=== PATIENT | female | born 1950 | race Caucasian/White ===

== ENCOUNTER → 2020-03-27 | Day surgery (SDC) | payer MEDICARE, OTHER ==
[~2020-03-27] MED LIST: AMARYL2 MG PO; ASPIRIN EC81 MG PO; CALCIUM 500 +1 EACH PO; COZAAR 100MG T100 MG PO; FERROUS SULFAT325 MG PO; INVOKANA100 MG PO; KEFLEX250 MG PO; LASIX40 MG PO; LEVAQUIN250 MG PO; LISINOPRIL-HCT1 EAC1 PO; LOPRESSOR50 MG PO; METRONIDAZOLE500 MG PO; MINOXIDIL2.5 MG PO; NORCO 5-325 TA1 EACH PO; NORVASC5 MG PO; PLAVIX75 M1 PO; PRILOSEC20 MG PO; PRINIVIL20 MG PO; PROBIOTIC1 EAC1 PO; SIMVASTATIN40 MG PO; TORSEMIDE100 MG PO; VIBRAMYCIN100 MG PO; ZAROXOLYN2.5 MG PO; ZOCOR40 MG PO; ZOLOFT50 MG PO
[2020-03-27 12:19] LABS: HCT 35.7 % (37.0-47.0); HGB 10.2 g/dl (12.5-16.0); MCH 24.1 pg (25.0-31.0); MCHC 28.6 g/dL (32.0-36.0); MCV 84.2 fL (78.0-100.0); MPV 9.5 fL (6.0-9.5); RBC 4.24 M/uL (4.20-5.40); RDW 15.8 % (11.5-14.0)
== END | disposition home or self-care (01) ==
LOC: FAS 08:40
PROVIDERS: Legal Medicine
DX: M71.122 Other infective bursitis, left elbow (principal); M25.022 Hemarthrosis, left elbow; K21.9 Gastro-esophageal reflux disease without esophagitis; I12.9 Hypertensive chronic kidney disease with stage 1 through stage 4 chronic kidney disease, or unspecified chronic kidney disease; E11.22 Type 2 diabetes mellitus with diabetic chronic kidney disease; N18.4 Chronic kidney disease, stage 4 (severe); J44.9 Chronic obstructive pulmonary disease, unspecified; Z86.73 Personal history of transient ischemic attack (TIA), and cerebral infarction without residual deficits; Z87.891 Personal history of nicotine dependence; Z79.82 Long term (current) use of aspirin; Z79.84 Long term (current) use of oral hypoglycemic drugs; Z79.899 Other long term (current) drug therapy; Z88.2 Allergy status to sulfonamides; Z88.5 Allergy status to narcotic agent; Z79.02 Long term (current) use of antithrombotics/antiplatelets
CPT/HCPCS: 36415; 87070; 87205; 88305; 93005; J0690; J2250; J2405; J2795; J3010; J3260; J7120

== ENCOUNTER 2020-10-22 19:30 | Day surgery (SDCO) | payer MEDICARE, OTHER ==
[~2020-10-22] VITALS: Ht 152.4 cm; Wt 97.7 kg
[2020-10-22 19:57] LABS: BASOPHIL 0.3 % (0-2); HCT 29.8 % (37.0-47.0); HGB 8.7 g/dl (12.5-16.0); MCH 23.5 pg (25.0-31.0); MCHC 29.2 g/dL (32.0-36.0); MCV 80.3 fL (78.0-100.0); MPV 8.9 fL (6.0-9.5); NEUTROPHIL 88.1 % (41-80); PLT 244 K/uL (150-400); RBC 3.71 M/uL (4.20-5.40); RDW 16.2 % (11.5-14.0); WBC 7.29 K/uL (4.0-10.5)
[2020-10-22 20:18] LABS: ALBUMIN 3.8 g/dL (3.4-5.0); BILIRUBIN - TOTAL 0.3 mg/dL (0.2-1.0); CREATININE 2.78 mg/dL (0.51-0.95); GLOBULIN (CALCULATION) 3.1 g/dL; PRO-BNP 2863 pg/mL (<125); TOTAL PROTEIN 6.9 g/dL (6.4-8.2)
[2020-10-23 07:29] LABS: HCT 28.3 % (37.0-47.0); MCH 23.2 pg (25.0-31.0); MCHC 28.3 g/dL (32.0-36.0); MPV 9.4 fL (6.0-9.5); RBC 3.45 M/uL (4.20-5.40); RDW 16.3 % (11.5-14.0); WBC 5.9 K/uL (4.0-10.5)
[2020-10-23 07:45] LABS: CREATININE 2.47 mg/dL (0.51-0.95); POTASSIUM 4.6 mmol/L (3.5-5.1)
[2020-10-23] MEDS ORDERED: ZYRTEC10 M3 PO (12:30)
[2020-10-23] MEDS ORDERED: PREDNISONE 20MG20 MG PO (12:31)
[2020-10-23] MEDS ORDERED: METOLAZONE 5MG T5 MG PO (12:41)
--- NOTE | 2020-10-23 17:33 | NUR ---
1716: THIS NURSE ANSWERED THE PHONE AND IT WAS [facility] TRANSFER LINE ASKING IF THIS PATIENT IS TO BE TRANSFERRED. I ASKED DR. PELAYO AND HE STATED HE DID NOT SEE A NEED FOR TRANSFER. I TOLD THE TRANSFER LINE TO CANCEL THE BED
[2020-10-24 08:35] LABS: BASOPHIL 0.6 % (0-2); EOSINOPHIL 3.2 % (0-7); HCT 28.4 % (37.0-47.0); HGB 7.9 g/dl (12.5-16.0); LYMPHOCYTE 23.9 % (15-48); MCH 23.5 pg (25.0-31.0); MCHC 27.8 g/dL (32.0-36.0); MCV 84.5 fL (78.0-100.0); MONOCYTE 7.1 % (0-12); MPV 9.6 fL (6.0-9.5); NEUTROPHIL 64.4 % (41-80); NRBC 0; PLT 211 K/uL (150-400); RBC 3.36 M/uL (4.20-5.40); RDW 16.2 % (11.5-14.0); WBC 4.9 K/uL (4.0-10.5)
[2020-10-24 09:02] LABS: ALBUMIN 3.2 g/dL (3.4-5.0); BILIRUBIN - TOTAL 0.2 mg/dL (0.2-1.0); CREATININE 2.4 mg/dL (0.51-0.95); FOLIC ACID (SERUM) 12.5 ng/mL (8.6-58.9); POTASSIUM 5.2 mmol/L (3.5-5.1); TOTAL PROTEIN 6.2 g/dL (6.4-8.2)
[2020-10-25 05:47] LABS: BASOPHIL 0.3 % (0-2); EOSINOPHIL 3.9 % (0-7); HCT 29.7 % (37.0-47.0); HGB 8.3 g/dl (12.5-16.0); LYMPHOCYTE 17.7 % (15-48); MCH 23.4 pg (25.0-31.0); MCHC 27.9 g/dL (32.0-36.0); MCV 83.9 fL (78.0-100.0); MONOCYTE 7.4 % (0-12); MPV 9.4 fL (6.0-9.5); NEUTROPHIL 70.4 % (41-80); NRBC 0; PLT 201 K/uL (150-400); RBC 3.54 M/uL (4.20-5.40); RDW 15.9 % (11.5-14.0); WBC 6.5 K/uL (4.0-10.5)
[2020-10-25 06:04] LABS: BUN/CREAT RATIO (CALC) 31.2 RATIO; CREATININE 2.37 mg/dL (0.51-0.95)
--- NOTE | 2020-10-25 11:06 | NUR ---
MET WITH PT. TO DISCUSS O2. SHE REQUESTED [facility]. ADVISED [facility] WILL DELIVER A PORTABLE TANK TO HOSPITAL AND CONCENTRATOR TO THE HOME. PT. DECLINED HH. PT. SIGNED CHOICE FORM. ADVISED [facility] GARCIA THAT PT IS GETTING O2 FROM [facility] AND THAT SHE DECLINED HH.
== END 2020-10-25 13:25 | disposition home or self-care (01) ==
LOC: FER 19:30 → FMS 10-23 09:47
PROVIDERS: Allergy & Immunology Allergy; Emergency Medicine; ADMIT Internal Medicine
DX: R07.89 Other chest pain (principal); I13.10 Hypertensive heart and chronic kidney disease without heart failure, with stage 1 through stage 4 chronic kidney disease, or unspecified chronic kidney disease; E11.22 Type 2 diabetes mellitus with diabetic chronic kidney disease; N18.30 Chronic kidney disease, stage 3 unspecified; D63.1 Anemia in chronic kidney disease; N17.9 Acute kidney failure, unspecified; I69.349 Monoplegia of lower limb following cerebral infarction affecting unspecified side; I25.10 Atherosclerotic heart disease of native coronary artery without angina pectoris; M71.22 Synovial cyst of popliteal space [Baker], left knee; J98.11 Atelectasis; Z86.711 Personal history of pulmonary embolism; Z87.891 Personal history of nicotine dependence; Z79.02 Long term (current) use of antithrombotics/antiplatelets; Z79.82 Long term (current) use of aspirin; Z79.899 Other long term (current) drug therapy; Z88.2 Allergy status to sulfonamides; Z88.5 Allergy status to narcotic agent; Z20.822 Contact with and (suspected) exposure to COVID-19
CPT/HCPCS: 36415; 71045; 71250; 78582; 80048; 80053; 82607; 82728; 82746; 83540; 83880; 84443; 84484; 85025; 85379; 93005; 93970; 94760; C9113; G0378; J1644; U0002

== ENCOUNTER 2021-01-02 08:39 | Inpatient (IN) | payer MEDICARE, OTHER ==
[~2021-01-02] VITALS: Ht 160 cm; Wt 98.5 kg
[~2021-01-02 08:39] MED LIST changes: +METOLAZONE 5MG T5 MG PO; +PREDNISONE 20MG20 MG PO; +ZYRTEC10 M3 PO
[2021-01-02 09:56] LABS: BILIRUBIN NEGATIVE (NEGATIVE); BLOOD 2+ Ery/uL (NEGATIVE); CLARITY CLEAR (CLEAR); COLOR YELLOW (YELLOW); GLUCOSE (U) NORMAL (NORMAL); LEUKOCYTES 3+ Leu/uL (NEGATIVE); NITRITE POSITIVE (NEGATIVE); PROTEIN 2+ mg/dL (NEGATIVE); SPECIFIC GRAVITY 1.025 (1.001-1.030); UROBILINOGEN 0.2 mg/dL (0.2-1.0); pH 5.5 (5.0-9.0)
[2021-01-02 10:01] LABS: CORONAVIRUS 2019 SARS-COV-2 NEGATIVE (NEGATIVE); INFLUENZA A NAA NEGATIVE (NEGATIVE)
[2021-01-02 10:04] LABS: BACTERIA 3+; URINARY RBC 20-50
[2021-01-02 10:17] LABS: BASOPHIL 0.4 % (0-2); EOSINOPHIL 0.3 % (0-7); HCT 31.4 % (37.0-47.0); HGB 9.3 g/dl (12.5-16.0); LYMPHOCYTE 5.7 % (15-48); MCH 27.2 pg (25.0-31.0); MCHC 29.6 g/dL (32.0-36.0); MCV 91.8 fL (78.0-100.0); MONOCYTE 3.8 % (0-12); MPV 9.2 fL (6.0-9.5); NEUTROPHIL 88.8 % (41-80); NRBC 0; PLT 155 K/uL (150-400); RBC 3.42 M/uL (4.20-5.40); RDW 17.1 % (11.5-14.0); WBC 7.9 K/uL (4.0-10.5)
[2021-01-02 10:35] LABS: INR 1.09 (0.9-1.2); PROTHROMBIN TIME 13.5 SECONDS (11.8-13.4); PTT 28.1 SECONDS (24.4-34.7)
[2021-01-02 10:41] LABS: BILIRUBIN - TOTAL 0.5 mg/dL (0.2-1.0); BUN/CREAT RATIO (CALC) 29.1 RATIO; CREATININE 1.89 mg/dL (0.51-0.95); GLOBULIN (CALCULATION) 3.1 g/dL; POTASSIUM 4.6 mmol/L (3.5-5.1); TOTAL PROTEIN 7.1 g/dL (6.4-8.2)
[2021-01-02 10:51] LABS: LACTIC ACID 0.9 mmol/L (0.4-1.9)
[2021-01-02] MEDS ORDERED: PROTONIX 40MG T40 MG PO (15:06)
== END 2021-01-03 01:50 | disposition other institution (70) | DRG 193 ==
LOC: FER 08:39 → FTCU 12:59
PROVIDERS: Emergency Medicine; ADMIT Internal Medicine
DX: J18.9 Pneumonia, unspecified organism (principal); J96.21 Acute and chronic respiratory failure with hypoxia; N18.4 Chronic kidney disease, stage 4 (severe); K90.9 Intestinal malabsorption, unspecified; N17.9 Acute kidney failure, unspecified; N39.0 Urinary tract infection, site not specified; I13.0 Hypertensive heart and chronic kidney disease with heart failure and stage 1 through stage 4 chronic kidney disease, or unspecified chronic kidney disease; E87.0 Hyperosmolality and hypernatremia; E87.2 Acidosis; Z20.822 Contact with and (suspected) exposure to COVID-19; N18.9 Chronic kidney disease, unspecified; D47.2 Monoclonal gammopathy; I50.9 Heart failure, unspecified; E78.5 Hyperlipidemia, unspecified; F32.A Depression, unspecified; Z90.710 Acquired absence of both cervix and uterus; Z90.89 Acquired absence of other organs; Z88.2 Allergy status to sulfonamides; Z88.5 Allergy status to narcotic agent; Z86.711 Personal history of pulmonary embolism; I69.398 Other sequelae of cerebral infarction
CPT/HCPCS: 36415; 36600; 71045; 71250; 80053; 81001; 82803; 82962; 83036; 83605; 83880; 84484; 85025; 85610; 85730; 87040; 87088; 93005; 94640; 94660; 96365; 96367; 96375; J0456; J0696; J1644; J1940; J2405; J7050; U0002

== ENCOUNTER 2021-01-29 16:39 | Inpatient (IN) | payer MEDICARE, OTHER ==
[~2021-01-29] VITALS: Ht 162.6 cm; Wt 94.9 kg
[~2021-01-29 16:39] MED LIST changes: +PROTONIX 40MG T40 MG PO
[2021-01-29 17:02] LABS: BASOPHIL 0.3 % (0-2); EOSINOPHIL 3.6 % (0-7); HCT 22.5 % (37.0-47.0); HGB 6.9 g/dl (12.5-16.0); LYMPHOCYTE 7.9 % (15-48); MCH 29.7 pg (25.0-31.0); MCHC 30.7 g/dL (32.0-36.0); MONOCYTE 13.1 % (0-12); MPV 9.6 fL (6.0-9.5); NEUTROPHIL 74.6 % (41-80); NRBC 0; PLT 162 K/uL (150-400); RBC 2.32 M/uL (4.20-5.40); RDW 16.1 % (11.5-14.0); WBC 3.9 K/uL (4.0-10.5)
[2021-01-29 17:19] LABS: ALBUMIN 2.8 g/dL (3.4-5.0); BILIRUBIN - TOTAL 0.8 mg/dL (0.2-1.0); BUN/CREAT RATIO (CALC) 17.2 RATIO; CREATININE 1.8 mg/dL (0.51-0.95); GLOBULIN (CALCULATION) 3.3 g/dL; POTASSIUM 4.6 mmol/L (3.5-5.1); TOTAL PROTEIN 6.1 g/dL (6.4-8.2)
[2021-01-29 17:43] LABS: CORONAVIRUS 2019 SARS-COV-2 NEGATIVE (NEGATIVE); INFLUENZA A NAA NEGATIVE (NEGATIVE)
[2021-01-29 17:53] LABS: RETICULOCYTE COUNT 0.5 % (1.0-2.0)
[2021-01-30 01:34] LABS: HCT 27.8 % (37.0-47.0); HGB 8.5 g/dL (12.5-16.0)
[2021-01-30 02:11] LABS: INR 1.11 (0.9-1.2); PROTHROMBIN TIME 13.7 SECONDS (11.8-13.4)
[2021-01-30 02:12] LABS: PTT 36.5 SECONDS (24.4-34.7)
[2021-01-30 03:10] LABS: IRON % SATURATION 16.6 %SAT (20-50)
[2021-01-30 07:14] LABS: BASOPHIL 0.6 % (0-2); EOSINOPHIL 4.5 % (0-7); HCT 24.9 % (37.0-47.0); HGB 7.6 g/dl (12.5-16.0); LYMPHOCYTE 9.5 % (15-48); MCH 28.7 pg (25.0-31.0); MCHC 30.5 g/dL (32.0-36.0); MONOCYTE 11.3 % (0-12); MPV 9.5 fL (6.0-9.5); NEUTROPHIL 72.9 % (41-80); NRBC 0; PLT 157 K/uL (150-400); RBC 2.65 M/uL (4.20-5.40); RDW 16.4 % (11.5-14.0); WBC 3.4 K/uL (4.0-10.5)
[2021-01-30 07:29] LABS: ALBUMIN 2.6 g/dL (3.4-5.0); BILIRUBIN - TOTAL 0.8 mg/dL (0.2-1.0); BUN/CREAT RATIO (CALC) 16.9 RATIO; CREATININE 1.77 mg/dL (0.51-0.95); POTASSIUM 4.2 mmol/L (3.5-5.1); TOTAL PROTEIN 5.6 g/dL (6.4-8.2)
[2021-01-31 06:40] LABS: BASOPHIL 0.3 % (0-2); EOSINOPHIL 3.8 % (0-7); HCT 24.6 % (37.0-47.0); LYMPHOCYTE 13.7 % (15-48); MCH 29.9 pg (25.0-31.0); MCHC 32.5 g/dL (32.0-36.0); MCV 91.8 fL (78.0-100.0); MONOCYTE 14.6 % (0-12); MPV 9.7 fL (6.0-9.5); NEUTROPHIL 66.6 % (41-80); NRBC 0; PLT 153 K/uL (150-400); RBC 2.68 M/uL (4.20-5.40); RDW 15.9 % (11.5-14.0); RETICULOCYTE COUNT 3.6 % (1.0-2.0); WBC 3.2 K/uL (4.0-10.5)
[2021-01-31 07:29] LABS: IRON % SATURATION 13.8 %SAT (20-50)
[2021-01-31 07:40] LABS: CREATININE 1.81 mg/dL (0.51-0.95); FOLIC ACID (SERUM) 9.7 ng/mL (8.6-58.9); MAGNESIUM 1.3 mg/dL (1.8-2.4); POTASSIUM 4.2 mmol/L (3.5-5.1)
--- NOTE | 2021-01-31 10:56 | NUR ---
01/31/21 Ms. Vu is from [place]. They will accept back per [facility]. Ms. Vu wishes to return to [place] as well.
[2021-01-31 20:58] LABS: HCT 25.9 % (37.0-47.0); HGB 8.4 g/dL (12.5-16.0)
[2021-02-01 06:49] LABS: BASOPHIL 0.3 % (0-2); EOSINOPHIL 5.2 % (0-7); HCT 25.6 % (37.0-47.0); HGB 8.1 g/dl (12.5-16.0); LYMPHOCYTE 12.1 % (15-48); MCH 29.2 pg (25.0-31.0); MCHC 31.6 g/dL (32.0-36.0); MCV 92.4 fL (78.0-100.0); MONOCYTE 12.1 % (0-12); MPV 9.6 fL (6.0-9.5); NEUTROPHIL 69.6 % (41-80); NRBC 0; PLT 163 K/uL (150-400); RBC 2.77 M/uL (4.20-5.40); RDW 15.7 % (11.5-14.0); WBC 3.1 K/uL (4.0-10.5)
[2021-02-01 07:25] LABS: ALBUMIN 2.2 g/dL (3.4-5.0); BILIRUBIN - TOTAL 0.6 mg/dL (0.2-1.0); BUN/CREAT RATIO (CALC) 16.3 RATIO; CREATININE 2.52 mg/dL (0.51-0.95); GLOBULIN (CALCULATION) 3.3 g/dL; TOTAL PROTEIN 5.5 g/dL (6.4-8.2)
--- NOTE | 2021-02-01 12:48 | NUR ---
02/01/21 1215 RIGHT UPPER ARM BASILIC VEIN VISUALIZED USING THE SITE RITE 6 ULTRASOUND MACHINE. PT THEN PREPPED AND DRAPED IN STERILE FASHION. THE AREA WAS CLEANSED WITH CHLORAPREP. THE AREA WAS ANESTHETIZED WITH 1% LIDOCAINE. A 21GA GUIDE NEEDLE WAS USED. GOOD BLOOD RETURN. THE GUIDE WIRE WAS THEN REMOVED AND A CAP WAS PLACED ON THE END. THE PT WAS MEASURED FOR THE PICC PLACEMENT. PICC WAS TRIMMED AT 45 CM AND FLUSHED. THE INTRODUCER WAS REMOVED AND THE PICC CATHETER WAS GUIDED INTO POSITION. THE SHEATH WAS PEELED BACK. A STERILE BIOPATCH WAS PLACED AT THE ORDER RECEIVED FOR PICC LINE PLACEMENT. RISKS AND BENEFITS EXPLAINED. CONSENT SIGNED. PT'S 38CM INSERTION SITE. A STAT LOCK WAS PLACED ON. A STERILE TEGADERM WAS PLACED OVER THE PICC LINE. A STAT PORTABLE CHEST XRAY WAS OBTAINED. PER RADIOLOGIST THE PICC LINE IS IN THE SVC. THE STYLET WAS REMOVED AND THE A CLEAR CAP WAS RADIOLOGIST THE PICC LINE IS IN THE SVC. THE STYLET WAS REMOVED AND THE A CLEAR CAP WAS FLUSHED AND PLACED ON THE END. PT HAS A 4 FR SINGLE LUMEN POWER PICC. TRIMMED AT 45 CM, INSERTION 2 CM, BICEP 38 CM. GOOD BLOOD RETURN NOTED. PT TOLERATED WELL. REPORT GIVEN TO SUSANNA ESCUDERO RN ON TCU. PT'S BED WAS LOWERED TO LOWEST POSITION SIDERAILS UP X 3. CALL LIGHT WITHIN REACH. BEDSIDE TABLE WITHIN REACH. .
[2021-02-02 05:16] LABS: MCH 29.4 pg (25.0-31.0); MCHC 30.8 g/dL (32.0-36.0); MCV 95.6 fL (78.0-100.0); MPV 9.6 fL (6.0-9.5); RBC 2.72 M/uL (4.20-5.40); RDW 15.5 % (11.5-14.0)
[2021-02-02 06:01] LABS: CREATININE 3.25 mg/dL (0.51-0.95); MAGNESIUM 1.6 mg/dL (1.8-2.4); POTASSIUM 5.4 mmol/L (3.5-5.1)
[2021-02-03 04:42] LABS: BASOPHIL 0.4 % (0-2); EOSINOPHIL 2.6 % (0-7); HCT 25.7 % (37.0-47.0); HGB 7.8 g/dl (12.5-16.0); MCHC 30.4 g/dL (32.0-36.0); MCV 95.5 fL (78.0-100.0); MONOCYTE 12.1 % (0-12); MPV 9.8 fL (6.0-9.5); NEUTROPHIL 73.9 % (41-80); NRBC 0; PLT 207 K/uL (150-400); RBC 2.69 M/uL (4.20-5.40); RDW 15.2 % (11.5-14.0); WBC 4.6 K/uL (4.0-10.5)
[2021-02-03 05:03] LABS: BUN/CREAT RATIO (CALC) 15.3 RATIO; CREATININE 3.79 mg/dL (0.51-0.95); MAGNESIUM 1.7 mg/dL (1.8-2.4)
[2021-02-03 16:35] LABS: BUN/CREAT RATIO (CALC) 15.2 RATIO; CREATININE 3.87 mg/dL (0.51-0.95); POTASSIUM 5.9 mmol/L (3.5-5.1)
[2021-02-04 01:32] LABS: ALBUMIN 2.4 g/dL (3.4-5.0); BILIRUBIN - TOTAL 0.3 mg/dL (0.2-1.0); BUN/CREAT RATIO (CALC) 16.3 RATIO; CREATININE 3.93 mg/dL (0.51-0.95); GLOBULIN (CALCULATION) 2.7 g/dL; TOTAL PROTEIN 5.1 g/dL (6.4-8.2)
[2021-02-04 05:50] LABS: BASOPHIL 0.2 % (0-2); EOSINOPHIL 2.1 % (0-7); HCT 24.6 % (37.0-47.0); HGB 7.7 g/dl (12.5-16.0); LYMPHOCYTE 7.7 % (15-48); MCH 29.3 pg (25.0-31.0); MCHC 31.3 g/dL (32.0-36.0); MCV 93.5 fL (78.0-100.0); MONOCYTE 11.5 % (0-12); MPV 9.7 fL (6.0-9.5); NEUTROPHIL 75.6 % (41-80); NRBC 0; PLT 236 K/uL (150-400); RBC 2.63 M/uL (4.20-5.40); RDW 14.8 % (11.5-14.0); WBC 4.8 K/uL (4.0-10.5)
[2021-02-04 06:29] LABS: CREATININE 3.89 mg/dL (0.51-0.95); POTASSIUM 5.8 mmol/L (3.5-5.1)
== END 2021-02-04 09:50 | disposition other institution (70) | DRG 919 ==
LOC: FER 16:39 → FTCU 21:53
PROVIDERS: Allergy & Immunology Allergy; Internal Medicine; Internal Medicine Cardiovascular Disease; Nurse Practitioner; ADMIT Internal Medicine
PROC: 5A09457 Assistance with Respiratory Ventilation, 24-96 Consecutive Hours, Continuous Positive Airway Pressure (ICD-10-PCS; 2021-01-29)
PROC: 02HV33Z Insertion of Infusion Device into Superior Vena Cava, Percutaneous Approach (ICD-10-PCS; principal; 2021-02-01)
DX: L76.32 Postprocedural hematoma of skin and subcutaneous tissue following other procedure (principal); I50.33 Acute on chronic diastolic (congestive) heart failure; J96.01 Acute respiratory failure with hypoxia; J96.02 Acute respiratory failure with hypercapnia; I13.0 Hypertensive heart and chronic kidney disease with heart failure and stage 1 through stage 4 chronic kidney disease, or unspecified chronic kidney disease; T81.49XA Infection following a procedure, other surgical site, initial encounter; N18.4 Chronic kidney disease, stage 4 (severe); K90.9 Intestinal malabsorption, unspecified; D62 Acute posthemorrhagic anemia; L03.115 Cellulitis of right lower limb; N17.9 Acute kidney failure, unspecified; Z20.822 Contact with and (suspected) exposure to COVID-19; I25.10 Atherosclerotic heart disease of native coronary artery without angina pectoris; D50.9 Iron deficiency anemia, unspecified; D47.2 Monoclonal gammopathy; K21.9 Gastro-esophageal reflux disease without esophagitis; E53.8 Deficiency of other specified B group vitamins; E78.5 Hyperlipidemia, unspecified; F32.A Depression, unspecified; D63.1 Anemia in chronic kidney disease; E11.22 Type 2 diabetes mellitus with diabetic chronic kidney disease; J44.9 Chronic obstructive pulmonary disease, unspecified; E66.01 Morbid (severe) obesity due to excess calories; E87.5 Hyperkalemia; B95.2 Enterococcus as the cause of diseases classified elsewhere; Z95.5 Presence of coronary angioplasty implant and graft; Z86.711 Personal history of pulmonary embolism; I69.398 Other sequelae of cerebral infarction; Z99.81 Dependence on supplemental oxygen; Z90.710 Acquired absence of both cervix and uterus; Z90.49 Acquired absence of other specified parts of digestive tract; Z90.89 Acquired absence of other organs; Z98.890 Other specified postprocedural states; Z88.2 Allergy status to sulfonamides; Z88.5 Allergy status to narcotic agent; Z87.891 Personal history of nicotine dependence; Z80.0 Family history of malignant neoplasm of digestive organs; Z80.52 Family history of malignant neoplasm of bladder; Z80.1 Family history of malignant neoplasm of trachea, bronchus and lung; Z79.82 Long term (current) use of aspirin; Z79.02 Long term (current) use of antithrombotics/antiplatelets; Z68.38 Body mass index [BMI] 38.0-38.9, adult; Z79.899 Other long term (current) drug therapy; I25.2 Old myocardial infarction; Y84.0 Cardiac catheterization as the cause of abnormal reaction of the patient, or of later complication, without mention of misadventure at the time of the procedure
CPT/HCPCS: 36415; 36430; 36600; 71045; 78582; 80048; 80053; 82607; 82728; 82746; 82803; 82962; 83540; 83550; 83735; 83880; 84484; 84550; 85014; 85018; 85025; 85610; 85730; 86850; 86900; 86901; 86922; 87070; 87077; 87186; 87205; 93005; 93970; 94640; 94660; 97110; 97162; 97166; 97530-GP; 97535; A9540; C1751; J0360; J0610; J1642; J1644; J2020; J2060; J2185; J2405; J2916; J3370; J3475; J7050; P9016; U0002

== ENCOUNTER 2021-09-07 09:24 | Emergency (ER) | payer MEDICARE, OTHER ==
[2021-09-07 10:46] LABS: BASOPHIL 0.6 % (0-2); HCT 40.3 % (37.0-47.0); HGB 12.3 g/dl (12.5-16.0); LYMPHOCYTE 10.4 % (15-48); MCH 30.6 pg (25.0-31.0); MCHC 30.5 g/dL (32.0-36.0); MCV 100.2 fL (78.0-100.0); MONOCYTE 4.4 % (0-12); MPV 9.4 fL (6.0-9.5); NEUTROPHIL 83.2 % (41-80); NRBC 0; PLT 223 K/uL (150-400); RBC 4.02 M/uL (4.20-5.40); RDW 13.1 % (11.5-14.0); WBC 7.2 K/uL (4.0-10.5)
[2021-09-07 10:47] LABS: BILIRUBIN NEGATIVE (NEGATIVE); BLOOD NEGATIVE Ery/uL (NEGATIVE); CLARITY CLEAR (CLEAR); COLOR YELLOW (YELLOW); GLUCOSE (U) NORMAL (NORMAL); LEUKOCYTES NEGATIVE Leu/uL (NEGATIVE); NITRITE NEGATIVE (NEGATIVE); PROTEIN 1+ mg/dL (NEGATIVE); UROBILINOGEN 0.2 mg/dL (0.2-1.0); pH 6.5 (5.0-9.0)
[2021-09-07 10:52] LABS: INR 0.99 (0.9-1.2); PROTHROMBIN TIME 12.8 SECONDS (11.9-13.9); PTT 29.6 SECONDS (24.9-34.6)
[2021-09-07 11:04] LABS: ALBUMIN 4.3 g/dL (3.4-5.0); CREATININE 2.78 mg/dL (0.51-0.95); GLOBULIN (CALCULATION) 3.4 g/dL; POTASSIUM 4.6 mmol/L (3.5-5.1); TOTAL PROTEIN 7.7 g/dL (6.4-8.2)
[2021-09-07 11:05] LABS: BILIRUBIN - TOTAL 0.4 mg/dL (0.2-1.0)
[2021-09-07 11:11] LABS: URINARY WBC RARE
[2021-09-07 11:12] LABS: SQUAMOUS EPITHELIAL CELLS RARE
[2021-09-07] MEDS ORDERED: ANTIVERT25 MG PO (11:34)
== END 2021-09-07 11:52 | disposition home or self-care (01) ==
LOC: FER 09:24
PROVIDERS: Emergency Medicine
DX: R42 Dizziness and giddiness (principal); M54.50 Low back pain, unspecified; R41.3 Other amnesia; T42.8X5A Adverse effect of antiparkinsonism drugs and other central muscle-tone depressants, initial encounter; I12.0 Hypertensive chronic kidney disease with stage 5 chronic kidney disease or end stage renal disease; E11.22 Type 2 diabetes mellitus with diabetic chronic kidney disease; N18.6 End stage renal disease; Z99.2 Dependence on renal dialysis; Z88.2 Allergy status to sulfonamides; Z88.5 Allergy status to narcotic agent; Z86.73 Personal history of transient ischemic attack (TIA), and cerebral infarction without residual deficits
CPT/HCPCS: 36415; 36600; 70450; 71045; 80053; 81001; 82803; 84443; 84484; 85025; 85610; 85730; 93005